=== PATIENT | female | born 1930 | race Caucasian/White ===

== ENCOUNTER 2016-10-30 16:19 | Inpatient (IN) ==
--- NOTE | 2016-10-30 19:41 | Diag Imaging Result Doc PS360 ---
CHEST-2 VIEWS - 10/30/2016 INDICATION: SOB TECHNIQUE: COMPARISON: 12/11/2012 FINDINGS: Stable hyperexpanded lungs compatible with COPD. There is stable linear atelectasis or scarring in the lingula. No focal infiltrates, pneumothorax, or pleural effusion. Heart size remains borderline enlarged. Pulmonary vascularity is normal. IMPRESSION: COPD with pulmonary scarring. No change from prior. Electronically signed by Luke Loaiza 10/30/2016 7:38 PM
[2016-10-30 19:54] LABS: MANUAL DIFF NEEDED? NO
[2016-10-30 19:57] LABS: BASO% 0.2 % (0.0-0.8); EOS# 0.08 X1000 (0.0-0.7); EOS% 0.6 % (0.0-10.0); HEMATOCRIT 33.7 % (37.0-47.0); HEMOGLOBIN 11.1 g/dL (12.0-16.0); IMM GRAN# 0.04 X1000 (0.0-0.04); IMM GRAN% 0.3 % (0.0-0.5); LYMPH# 3.74 X1000 (1.2-3.4); LYMPH% 27.1 % (20.5-51.1); MCH 29.1 PG (27-31); MCHC 32.9 g/dL (33-37); MCV 88.5 FL (81-99); MONO# 1.58 X1000 (0.11-0.59); MONO% 11.4 % (1.7-9.3); MPV 9.7 FL (7.4-10.4); NEUT% 60.4 % (42.2-75.2); PLT 249 X1000 (130-400); RBC 3.81 XMIL (4.2-5.4)
[2016-10-30 20:14] LABS: ALBUMIN 3.9 g/dL (3.5-5.0); CALCIUM 9.5 mg/dL (8.8-10.2); TOTAL BILIRUBIN 0.73 mg/dL (0.20-1.00); TOTAL PROTEIN 8.1 g/dL (6.3-8.3)
[2016-10-30 20:20] LABS: HEMOGLOBIN A1C 6.1 % (4.8-6.0)
[2016-10-30 20:36] LABS: INR 2.18; PROTIME 24.1 Seconds (9.2-11.7)
[2016-10-30] MEDS: BETAPACE PO SCH (20:48)
[2016-10-30] MEDS: LEVAQUIN 500 MG/D5W 500 MG/100 ML IVPB IV SCH (20:48)
[2016-10-30] MEDS: NEURONTIN PO SCH (20:49)
[2016-10-30] MEDS: NS 1,000 ML IV SCH (20:56)
--- NOTE | 2016-10-30 22:00 | HISTORY AND PHYSICAL ---
CHIEF COMPLAINT: Low back pain, fever 101 since Friday. HISTORY OF PRESENT ILLNESS: She is an 85-year-old pleasant white female, who was evaluated in my office with a 3-day history of lower back pain with fever of 101. Urinalysis positive for infection. She has a pain on both sides. X-rays reviewed with large staghorn calculus on the right side noted. Patient is admitted to the hospital with impending pyelonephritis and further evaluation. PAST MEDICAL HISTORY: Kidney stones, type 2 diabetes, SCHMITT, gout, hyperlipidemia, proximal supraventricular tachycardia, diabetic neuropathy, vitamin B12 deficiency, vitamin D deficiency. 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 MEDICATIONS: Amlodipine 5 mg daily, aspirin 80 mg daily, gabapentin 300 p.o. b.i.d., Lantus 30 units twice daily, metformin 500 mg 2 tablets p.o. b.i.d., Coumadin 1.25 daily, sotalol 80 mg p.o. b.i.d., Ultracet 1 tablet t.i.d., vitamin D 67773 once a week, warfarin 5 mg daily. ALLERGIES: Codeine, Keflex and tramadol. 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 No smoking. No alcohol. FAMILY HISTORY: Father of lung cancer at 80. Mom at 67 with heart attack. Brother had pancreatic and colon cancer. HEALTH MAINTENANCE: Flu vaccine 2015, pneumococcal vaccine 2008, shingles vaccine 2013, tetanus 2005, mammography 2013, DEXA scan 2013, colonoscopy Dr. Fisher. REVIEW OF SYSTEMS: HEENT: No headache. No vision problem. No earache. No sore throat. Neck: No goiter. No lymphadenopathy. No bruit. Cardiopulmonary: No chest pain, shortness of breath, PND, orthopnea. GI: Lower back pain. No nausea, vomiting, altered bowel habits. No bleeding per rectum. : No history of hesitancy, frequency. No swelling of feet. Right great toe was amputated. No neurological deficits or weakness, dizziness, vertigo or seizures. PHYSICAL EXAMINATION: VITAL SIGNS: Stable. 5 feet 6 inches, 149 pounds. Temp was 101 degrees in my office. HEENT: Atraumatic, normocephalic. Pupils equal, react to light. TMs are normal. Nose and throat within normal limits. NECK: Supple. No lymphadenopathy. No goiter. CHEST: Bilateral air entry. HEART: Sounds are regular. ABDOMEN: Belly is soft, nontender. Good bowel sounds. Slightly tender in both flank areas. EXTREMITIES: No peripheral edema or cyanosis. No obvious neurological deficits. INVESTIGATIONS: CBC: White cell count 13, hematocrit 33, platelets 249,000. PT / INR 2.1. SMA 7: Sodium 138, potassium 4.0, chloride 99, BUN 25, creatinine 1.2 glucose 67. A1c 6.1. Chest x-ray: COPD stable. CTA renal stone search is pending. ASSESSMENT: An 85-year-old female admitted to the hospital basically with impending pyelonephritis, elevated white cell count, fever of 101, associated with urinary tract infection with a kidney stone on the right side. PLAN: 1. IV fluids. 2. IV antibiotics. 3. CT renal stone search. 4. Paroxysmal atrial fibrillation. On sotalol and Coumadin. 5. Urology consult based on the CT renal stone search, and will slowly reconcile home medications. 6. Tylenol for pain and fever. 7. Will follow up on the pending labs. cc: Finn Willson MD MTDD
--- NOTE | 2016-10-30 22:10 | Diag Imaging Result Doc PS360 ---
CT RENAL STONE SEARCH - 10/30/2016 INDICATION: kidney stone TECHNIQUE: A CT dose reduction protocol was used. COMPARISON: 12/09/2012 FINDINGS: There is a stable large nonobstructing stone in the right renal pelvis. This measures about 2.2 cm. There are some other stable tiny 1-2 mm stones bilaterally. No hydronephrosis. There are cholecystectomy changes. There are a couple of drops of gas in the biliary collecting system of the liver consistent with pneumobilia. Presumably this is benign. There is a grossly stable left adnexal cyst measuring about 3.2 cm. The liver has a slightly nodular contour. There may be cirrhosis. There is moderate constipation throughout the colon diffusely. No bowel obstruction or inflammation. Urinary bladder is normal. There are moderate degenerative changes of the spine. No acute or suspicious bony lesion. IMPRESSION: 1. Stable large nonobstructing stone in the right renal pelvis. Tiny bilateral renal stones. No hydronephrosis. 2. Diffuse constipation. 3. Nodular liver. There may be cirrhosis. 4. Stable cystic structure of the left ovary. Electronically signed by Luke Loaiza 10/30/2016 10:07 PM
[2016-10-30] MEDS: HUMULIN R SUBQ SCH (22:13)
[2016-10-31] MEDS: NUBAIN IV PRN ×2 (00:11→10:31)
[2016-10-31] MEDS: HUMULIN R SUBQ SCH ×4 (06:02→20:56)
[2016-10-31 06:28] LABS: MANUAL DIFF NEEDED? NO
[2016-10-31 06:42] LABS: BASO% 0.2 % (0.0-0.8); EOS% 0.8 % (0.0-10.0); HEMOGLOBIN 9.6 g/dL (12.0-16.0); IMM GRAN# 0.05 X1000 (0.0-0.04); IMM GRAN% 0.4 % (0.0-0.5); LYMPH# 3.46 X1000 (1.2-3.4); LYMPH% 27.8 % (20.5-51.1); MCH 28.7 PG (27-31); MCV 89.8 FL (81-99); MPV 10.5 FL (7.4-10.4); NEUT% 58.8 % (42.2-75.2); PLT 210 X1000 (130-400); RBC 3.34 XMIL (4.2-5.4)
[2016-10-31 07:26] LABS: CALCIUM 8.4 mg/dL (8.8-10.2); POTASSIUM 4.1 mmol/L (3.5-5.1)
[2016-10-31 07:32] LABS: INR 2.35; PROTIME 26.1 Seconds (9.2-11.7)
[2016-10-31] MEDS: BETAPACE PO SCH ×2 (09:12→20:55)
[2016-10-31] MEDS: NEURONTIN PO SCH ×2 (09:12→20:55)
--- NOTE | 2016-10-31 10:50 | Diag Imaging Result Doc PS360 ---
EXAM: SHOULDER-RIGHT HISTORY: pain TECHNIQUE: Right shoulder two views COMMENT: There is some apparent calcification around the acromioclavicular joint. There is no evidence of fracture or dislocation. Some subchondral cyst formation is seen in the distal clavicle. There is no definite internal rotation view. 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 Electronically signed by Jay Michael 10/31/2016 10:48 AM
[2016-10-31] MEDS: NS 1,000 ML IV SCH ×2 (11:41→20:54)
[2016-10-31] MEDS ORDERED: ZOFRAN IV PRN (12:13)
[2016-10-31 14:26] LABS: URINE SOURCE CLEAN CATCH
[2016-10-31 14:30] LABS: BILIRUBIN URINE NEGATIVE (NEGATIVE); BLOOD URINE MODERATE (NEGATIVE); COLOR YELLOW; GLUCOSE URINE NEGATIVE (NEGATIVE); LEUKOCYTES URINE MODERATE (NEGATIVE); NITRITE URINE NEGATIVE (NEGATIVE); PROTEIN URINE 50 mg/dL (NEGATIVE); SP GRAVITY URINE 1.017; TURBIDITY URINE HAZY (CLEAR); URINE MICRO REVIEW NEEDED? YES; UROBILINOGEN URINE NORMAL (NORMAL)
[2016-10-31 14:31] LABS: UR EPITHELIAL CELLS <10 /HPF (<10); URINE BACTERIA NEGATIVE /HPF; URINE CULTURE NEEDED? YES
[2016-10-31 14:47] LABS: URINE CASTS GRANULAR PRESENT; URINE SMALL ROUND CELLS RENAL PRESENT
[2016-10-31] MEDS ORDERED: BLISTEX MEDICATED BERRY LIP BALM TOP PRN (16:08)
[2016-10-31] MEDS ORDERED: INSULIN PEN NEEDLES ONE (17:26)
[2016-10-31] MEDS: LEVAQUIN 500 MG/D5W 500 MG/100 ML IVPB IV SCH (20:54)
[2016-10-31] MEDS: LANTUS SUBQ SCH (20:55)
[2016-10-31] MEDS ORDERED: MEDROL DOSEPAK PO SCH (21:30)
[2016-11-01] MEDS: MEDROL PO SCH ×6 (00:01→20:32)
--- NOTE | 2016-11-01 05:51 | CONSULTATION ---
DATE OF CONSULTATION: 10/31/2016 ATTENDING AND REFERRING PHYSICIAN: Zulma Willson MD. HISTORY OF PRESENT ILLNESS: This 85-year-old female was admitted with right flank pain and fever for several days. The patient's CT scan revealed a 2.2 cm right renal pelvic stone. The stone did not appear to be causing hydronephrosis at the time of the study. She had a CT scan back in 2012, that also revealed a 2 cm right renal pelvic stone. She did not have anything done about that. The scan also revealed very small stones in the left and the right kidney , largest 1 mm. The patient denies any previous urologic surgery. She states she has an occasional urinary tract infection. She is receiving Levaquin 500 mg IV, and a urine culture is pending. She denies any hematuria. PAST MEDICAL HISTORY: Diabetes, gout, elevated cholesterol, coronary artery disease, history of atrial fibrillation, peripheral neuropathy, peripheral arterial disease, lower extremity venous problems. CURRENT MEDICATIONS: Documented on the chart and include Coumadin. PAST SURGICAL HISTORY: Right great toe amputation, cholecystectomy, appendectomy, hysterectomy, breast biopsy, and teeth extraction. SOCIAL HISTORY: No tobacco or alcohol use. ALLERGIES: She is allergic to codeine, Keflex, and tramadol. REVIEW OF SYSTEMS: She states that she just feels somewhat better. She denies any chest pains, recent pulmonary or bowel problems. She states she is trying to keep her blood sugar under control. PHYSICAL EXAMINATION: General: A normally developed, well-nourished, age apparent, white female, oriented in all ways and cooperative. HEENT: Normal for age. Lungs: Clear. Cardiovascular: Irregular rate and rhythm. Abdomen: Obese, soft, mild tenderness in the right side, but no guarding or rebound. Normal bowel sounds. No hepatosplenomegaly or masses. Back: Right CVA tenderness. Left side is normal. Genitourinary: Deferred until surgery. Extremities: No clubbing, cyanosis, or edema. Neuro: No focal deficits. LABORATORY EVALUATION: Has a white count of 12.46, a hemoglobin 9.6, hematocrit 30, platelets are 210,000. Serum electrolytes are normal. BUN 25, creatinine 1.2. CT stone search is as noted in the HPI. IMPRESSION: 1. Right flank pain and fever, probable right pyelonephritis. 2. A 2.2 cm right renal pelvic stone. RECOMMEND: 1. Continuing IV antibiotics until urine culture results are available. If that is negative, would continue Lovenox. 2. Place right double-J stent to decompress the right kidney. The planned procedure, benefits versus risks, and possible complications, including, but not limited to bleeding, infection, need for further surgery was discussed. She seemed to understand and desired to proceed. 3. Discussed the large stone in the right renal pelvis. After her infection and pain resolves, she will need either right shockwave lithotripsy versus laparoscopic pyelolithotomy. This was discussed with her, and she is going to think about that. Thank you for this consultation. cc: MD Finn Michaels MD MTDD
--- NOTE | 2016-11-01 05:55 | PROGRESS NOTE ---
DATE: 10/31/2016 SUBJECTIVE: The patient is now complaining of right shoulder pain, and abdominal pain is much improved. REVIEW OF SYSTEMS: None reported. OBJECTIVE: Vital signs: Afebrile. Hemodynamics were stable. HEENT: Within normal limits. Neck: Supple. Chest: Clear. Heart: Sounds are regular. Extremities: Right shoulder is inflamed with bursitis anteriorly. Noted positive impingement sign. Abdomen : Belly is soft, nontender. Good bowel sounds. DRESSMAKER OR TAILOR: No obvious neurological deficits. INVESTIGATIONS: CBC: White cell count 12, hematocrit 30, platelets 210,000. PT 26, INR 2.3. SMA-7 is normal except creatinine 1.2, glucose 114. Urinalysis - moderate infection. Cultures are pending. ASSESSMENT AND PLAN: 1. Right shoulder pain, which is new onset suspicious for bursitis. X-rays is negative. Treatment with a Medrol Dosepak. 2. Urinary tract infection with pyelonephritis with the right-sided kidney stone. Dr. Chavez consult. 3. I discussed with the family members in [place] and about her mother's progress, and the level of documentation is 25 minutes. 4. Diabetes on Lantus. Since the patient is going to be NPO after midnight, we will hold the evening dose of Lantus as well as the morning. cc: Finn Willson MD [facility]odrick
[2016-11-01] MEDS: HUMULIN R SUBQ SCH ×4 (06:05→22:55)
[2016-11-01] MEDS: NEURONTIN PO SCH ×2 (08:36→20:31)
[2016-11-01] MEDS: BETAPACE PO SCH ×2 (08:36→20:31)
[2016-11-01] MEDS: LOTREL 5/10 MG PO SCH (08:36)
[2016-11-01] MEDS: NUBAIN IV PRN (08:37)
[2016-11-01] MEDS: NS 1,000 ML IV SCH ×2 (08:37→12:52)
[2016-11-01] MEDS ORDERED: FENTANYL ONE (14:41)
[2016-11-01] MEDS ORDERED: DIPRIVAN 1% ONE (14:41)
[2016-11-01] MEDS ORDERED: XYLOCAINE-MPF 2% ONE (14:41)
[2016-11-01] MEDS ORDERED: NEOSPORIN G.U. IRRIGANT ONE (14:52)
[2016-11-01] MEDS ORDERED: ROBINUL ONE (15:06)
[2016-11-01] MEDS ORDERED: TORADOL ONE (15:12)
[2016-11-01] MEDS ORDERED: DECADRON ONE (15:12)
[2016-11-01] MEDS ORDERED: DITROPAN PO PRN (16:26)
--- NOTE | 2016-11-01 18:59 | PROGRESS NOTE ---
DATE: 11/01/2016 SUBJECTIVE: Patient complains of itchy nose, rash, and right shoulder pain. No back pain, no fever. Seen by Dr. Chavez, and the rest of the review of systems are normal. OBJECTIVE: Temperature is 97 degrees, pulse is 68, blood pressure is 136/47, 2 L nasal cannula 92%. I's and O's are positive 400 mL. HEENT: Itchy rash on the tip of the nose. Shoulders: Right shoulder is inflamed, not able to move. Chest: Clear. Heart: Sounds are regular. Abdomen: Belly is soft, nontender. Good bowel sounds. Neurologic: No neurological deficits. INVESTIGATIONS: None reported, and urine cultures are no growth. ASSESSMENT AND PLAN: 1. Fever 101, elevated white cell count. Positive urine infection by dipstick with staghorn type of calculus in the right kidney. Dr. Chavez was consulted. He is going to do cystoscopy with retrograde pyelogram and double-J stent and continue IV fluids and IV antibiotics. 2. Right shoulder pain. It looked like a bursitis. On Medrol Dosepak. 3. Type 2 diabetes on Lantus. We will hold the Lantus insulin, n.p.o. We will restart again tonight. 4. Paroxysmal supraventricular tachycardia/PAF on sotalol, and will hold the Coumadin. We will restart after the procedure. 5. Hypertension. On Lotrel. LEVEL OF DOCUMENTATION: 25 minutes. cc: Finn Willson MD
[2016-11-01] MEDS: LEVAQUIN 500 MG/D5W 500 MG/100 ML IVPB IV SCH (20:29)
[2016-11-01] MEDS: LANTUS SUBQ SCH (22:55)
[2016-11-02] MEDS: NS 1,000 ML IV SCH ×2 (03:15→16:55)
[2016-11-02] MEDS: HUMULIN R SUBQ SCH ×4 (06:24→22:12)
--- NOTE | 2016-11-02 08:17 | OPERATIVE NOTE ---
PROCEDURE DATE: 11/01/2016 SURGEON: Dr. Roebrt Chavez. PROCEDURE PERFORMED: Cystoscopic examination, right retrograde ureteral pyelogram, placement of a right double-J stent. ANESTHESIA: General via laryngeal mask. FINDINGS: Cystoscopic exam: Urethra-greater than 21-Kuwaiti without stricture. Bladder-normal ureteral orifices bilaterally. No papillary lesions. Grade 1 trabeculations. Small diverticulum on the right lower posterolateral wall that was easily scoped. exam: Normal external female. Atrophic mucosa. No adnexal masses. Palpably normal bladder. Right retrograde ureteral pyelogram: The large stone was visualized and when contrast was placed, it created a large filling defect in the renal pelvis. No other filling defects were noted. There was no hydronephrosis. INDICATIONS FOR PROCEDURE: This 85-year-old female has a long history of an enlarging right renal pelvic stone. It is currently approximately 2.5 cm in diameter. She was admitted with right pyelonephritis. DESCRIPTION OF PROCEDURE: After informed consent was obtained from the patient and her receiving IV antibiotics, she was taken the main OR and placed in the supine position. General anesthesia via laryngeal mask was achieved. She was then placed in the low lithotomy position, and prepped and draped in the usual sterile fashion for a cystoscopic exam. A 21-Ku[place]i cystoscope was passed through the patient's urethra and into the bladder with findings noted above. An 8-Ku[place]i cone- tipped catheter was passed through the cystoscope, engaged the right ureteral orifice. Contrast was injected with findings as noted above. An 8-[place]i cone-tipped catheter was removed. A 0.035 inch ZIPwire was passed through the cystoscope, engaged the right ureteral orifice, advanced up into the kidney without difficulty. A 6-Ku[place]i, 24 cm double-J stent was passed over the ZIPwire and up into the kidney. The renal end was verified by fluoroscopic exam, bladder end directly visualized. Stent removal, string was removed. Bladder was drained. Cystoscope was removed. exam performed. Estimated blood loss 0. She tolerated the procedure well and was taken to the recovery room in good condition. cc: MD Finn Michaels MD
[2016-11-02] MEDS: LANTUS SUBQ SCH ×2 (09:27→22:12)
[2016-11-02] MEDS: BETAPACE PO SCH ×2 (09:27→22:11)
[2016-11-02] MEDS: MEDROL PO SCH ×4 (09:27→22:12)
[2016-11-02] MEDS: NEURONTIN PO SCH ×2 (09:27→22:11)
[2016-11-02] MEDS: LOTREL 5/10 MG PO SCH (09:27)
--- NOTE | 2016-11-02 11:51 | Diag Imaging Result Doc PS360 ---
EXAM: CHEST-PORTABLE HISTORY: cough TECHNIQUE: Portable upright AP COMPARISON: 10/30/2016 FINDINGS: The lungs are well expanded. Heart is borderline mildly prominent. No consolidation. No pleural effusions identified. The overall appearance is similar to that of the prior exam. IMPRESSION: No pneumonia. If clinical suspicion persists, a PA and lateral follow-up is recommended Electronically signed by Nicolás Zaragoza 11/02/2016 11:48 AM
--- NOTE | 2016-11-02 15:41 | PROGRESS NOTE ---
DATE: 11/02/2016 SUBJECTIVELY: Ms. Dinero is doing fair. Complaining of chest congestion, cough with scanty sputum production. She did have some runny nose, stuffy nose. No high-grade fever or chills. The patient underwent cystoscopy and right retrograde pyelogram and placement of right double-J stent yesterday. Patient tolerated procedure well. She denied any typical chest pain, palpitation, no nausea, vomiting. Oral intake is fair. No diarrhea, blood, or mucus in the stool. Admission history physical and Urology consult noted. PAST MEDICAL HISTORY: Significant for NIDDM, kidney stone, SCHMITT, gout, hyperlipidemia, paroxysmal supraventricular tachycardia, diabetic neuropathy, vitamin D deficiency, vitamin B12 deficiency. OBJECTIVE: Vital signs: Noted. Blood pressure 113/50, pulse 53, respiration 19, temperature 98.3 degrees. Skin: Senile turgor. HEENT: Head atraumatic, normocephalic. Brook conjunctivae. Anicteric sclerae. Extraocular muscle movement normal. Fundus cannot be penetrated. No pharyngeal congestion. Neck: Supple. No JVD, thyromegaly or lymphadenopathy. Chest: Bilateral good air entry present. No rales. CVS: S1 and S2 heard. Abdomen: Soft. No distention. Bowel sounds present. Extremities: No cyanosis, clubbing. No acute DVT. KINESIOLOGIST: Alert, awake, able to move all 4 limbs. PROBLEMS: Include UTI, staghorn calculus status post cystoscopy and double-J stent placement, diabetes mellitus, hypertension, paroxysmal supraventricular tachycardia patient is on Coumadin, hypertension on Lotrel. Patient labs and medication noted. Will continue current treatment. Close observation. The patient is on Medrol Dosepak, IV antibiotics. I am going to check chest x- ray to make sure no fluid overload or pneumonia. Continue rest of the treatment and close observation. cc: MD Finn Alexandra MD
[2016-11-02] MEDS: LEVAQUIN 500 MG/D5W 500 MG/100 ML IVPB IV SCH (22:10)
[2016-11-03] MEDS: HUMULIN R SUBQ SCH ×4 (06:35→21:22)
[2016-11-03] MEDS: NS 1,000 ML IV SCH ×2 (06:35→17:47)
[2016-11-03 06:57] LABS: BASO% 0.1 % (0.0-0.8); HEMATOCRIT 28.6 % (37.0-47.0); HEMOGLOBIN 9.2 g/dL (12.0-16.0); IMM GRAN# 0.09 X1000 (0.0-0.04); IMM GRAN% 0.7 % (0.0-0.5); LYMPH# 1.17 X1000 (1.2-3.4); LYMPH% 8.9 % (20.5-51.1); MANUAL DIFF NEEDED? YES; MCH 28.7 PG (27-31); MCHC 32.2 g/dL (33-37); MCV 89.1 FL (81-99); MONO# 0.63 X1000 (0.11-0.59); MONO% 4.8 % (1.7-9.3); MPV 11.1 FL (7.4-10.4); NEUT% 85.5 % (42.2-75.2); PLT 273 X1000 (130-400); RBC 3.21 XMIL (4.2-5.4)
[2016-11-03 07:29] LABS: ALBUMIN 2.8 g/dL (3.5-5.0); CALCIUM 8.7 mg/dL (8.8-10.2); MAGNESIUM 1.8 mg/dL (1.5-2.7); POTASSIUM 4.9 mmol/L (3.5-5.1); TOTAL BILIRUBIN 0.3 mg/dL (0.20-1.00); TOTAL PROTEIN 6.7 g/dL (6.3-8.3)
[2016-11-03 07:31] LABS: BANDS 4 % (0-1); LYMPHS 4 % (21-51); MONO 4 % (1-9)
[2016-11-03] MEDS: BETAPACE PO SCH ×2 (10:10→21:18)
[2016-11-03] MEDS: MEDROL PO SCH ×4 (10:10→21:17)
[2016-11-03] MEDS: LOTREL 5/10 MG PO SCH (10:10)
[2016-11-03] MEDS: NEURONTIN PO SCH ×2 (10:11→21:17)
[2016-11-03] MEDS: LANTUS SUBQ SCH ×2 (10:12→21:16)
[2016-11-03] MEDS: DIFLUCAN 200 MG/NS 200 MG/100 ML IVPB IV SCH (11:12)
--- NOTE | 2016-11-03 16:10 | PROGRESS NOTE ---
DATE: 11/03/2016 SUBJECTIVE: Ms. Dinero is doing better. Patient does have mild cough. No expectoration. No high-grade fever or chills. I did a chest x-ray yesterday, it did not show any pneumonia. The patient had cystoscopy and stent placement. Her urine culture grew yeast. I am going to stop Levaquin because of drug interaction with Diflucan, start her on Diflucan 200 mg IV and we should be able to change it to 100 mg IV or p.o. soon. No nausea or vomiting. PHYSICAL EXAMINATION: Vital signs: Noted. Neck: Supple. No JVD. Lungs: Bibasilar crepitation. Heart: S1 and S2 heard. Abdomen: Soft, nontender. Bowel sounds present. CARRIER ASSOCIATE: Alert, awake, able to move all 4 limbs. LABORATORY DATA: Lab data did reveal mild leukocytosis, could be due to steroid. Electrolytes: BUN 38, creatinine 1.3. The rest of lab data noted. ASSESSMENT: Overall patient is doing better. PLAN: Overall plan discussed with patient's son who was present. The patient is eager to go home. We will watch patient today. If clinical condition permits, we will plan discharging her home tomorrow. cc: MD Finn Alexandra MD
[2016-11-03] MEDS ORDERED: LASIX IV ONE (18:52)
[2016-11-03] MEDS: ALBUTEROL NEB INH SCH ×2 (19:00→22:55)
[2016-11-03] MEDS ORDERED: INSULIN PEN NEEDLES ONE (21:18)
[2016-11-04] MEDS: ALBUTEROL NEB INH SCH ×4 (03:40→21:35)
[2016-11-04] MEDS: HUMULIN R SUBQ SCH ×4 (06:20→22:42)
[2016-11-04] MEDS: NS 1,000 ML IV SCH (06:29)
--- NOTE | 2016-11-04 07:57 | Diag Imaging Result Doc PS360 ---
RETROGRADES 2 OR 3 FILMS - 11/01/2016 INDICATION: RIGHT RENAL STONE, STENT PLACEMENT TECHNIQUE: Right sided ureterogram. The exam was performed by the patient's urologist. 14 images were submitted. COMPARISON: CT from 10/30/2016 FINDINGS: On the engineering coordinator exam, there is a large stone in the right renal pelvis. This was not causing much obstruction. Contrast was successfully refluxed around the stone into the urinary collecting system. The renal collecting system appeared nondistended. A right nephroureteral stent was placed in an upper pole calyx. This is in good position. IMPRESSION: 1. Stable, large right renal pelvis stone without obstruction. 2. Successful nephroureteral stent placement. Electronically signed by Luke Loaiza 11/04/2016 7:55 AM
[2016-11-04] MEDS ORDERED: LASIX IV ONE (08:59)
[2016-11-04] MEDS: LOTREL 5/10 MG PO SCH (09:01)
[2016-11-04] MEDS: BETAPACE PO SCH ×2 (09:01→22:41)
[2016-11-04] MEDS: NEURONTIN PO SCH ×2 (09:02→22:41)
[2016-11-04] MEDS: MEDROL PO SCH ×3 (09:02→22:41)
[2016-11-04] MEDS: DIFLUCAN 200 MG/NS 200 MG/100 ML IVPB IV SCH (11:02)
[2016-11-04] MEDS: LANTUS SUBQ SCH ×2 (11:03→22:42)
--- NOTE | 2016-11-04 19:30 | PROGRESS NOTE ---
DATE: 11/04/2016 SUBJECTIVE: Interval history was reviewed. The patient's son was at the bedside. The patient has a retrograde pyelogram with double-J stent. Rash over the nose is improving, as well as the right shoulder pain. Complains of shortness of breath. I/O's are positive 1715, and 2 L nasal cannula 95%. OBJECTIVE: HEENT: Examination within normal limits. Chest: Bilateral air entry. Heart: Sounds are regular. Abdomen: Belly is soft, nontender. Good bowel sounds. No neurological deficits. INVESTIGATIONS: White cell count 13.2, hematocrit 28, platelet 273,000. SMA 7 is normal. BUN 38, creatinine 1.3. Urine culture yeast. ASSESSMENT AND PLAN: 1. Right kidney stones. Double-J stent. Continue on IV antibiotics. Urine cultures are negative except yeast. Discontinued antibiotics and now he is getting IV Diflucan. 2. Shortness of breath. Discontinue IV fluids. 3. Right shoulder pain. Improving on Medrol Dosepak. 4. Kidney stone on the right side. Discussed the option by Dr. Chavez with lithotripsy while she is off on Coumadin or laparoscopic removal of kidney stone. The patient has been opted to go for surgery. Dr. Chavez is going to do as an outpatient. 5. Diabetes. Continue on insulin. We will check the labs in the morning. 6. Shortness of breath. Discontinue IV fluids. Lasix 1 dose and check the chest x-ray in the morning. LEVEL OF DOCUMENTATION: Twenty minutes. cc: Finn Willson MD
[2016-11-05] MEDS: ALBUTEROL NEB INH SCH ×2 (03:35→09:44)
[2016-11-05 04:52] LABS: ALLEN TEST YES; BE 5.3 mmoll (-3.0-3.0); BLOOD TYPE ARTERIAL; DRAW SITE R RADIAL; METHB 0.5 % (0.0-1.5); MODALITY CANNULA; O2(CT) 12.9 mL/dL (15.0-23.0); PCO2(98.6) 43 mmHg (35-45); PO2(98.6) 66 mmHg (60-100); SAMPLE BLOOD; SAO2 94.8 % (95.0-100.0); THB 9.7 g/dL (11.5-17.4); pH(98.6) 7.45 (7.35-7.45)
[2016-11-05 05:01] VITALS: BP 141/68
[2016-11-05] MEDS: HUMULIN R SUBQ SCH (06:17)
[2016-11-05 06:25] LABS: MANUAL DIFF NEEDED? NO
[2016-11-05 06:35] LABS: EOS# 0.02 X1000 (0.0-0.7); EOS% 0.2 % (0.0-10.0); HEMATOCRIT 31.7 % (37.0-47.0); HEMOGLOBIN 10.4 g/dL (12.0-16.0); IMM GRAN% 0.9 % (0.0-0.5); LYMPH# 2.26 X1000 (1.2-3.4); LYMPH% 21.1 % (20.5-51.1); MCH 28.9 PG (27-31); MCHC 32.8 g/dL (33-37); MCV 88.1 FL (81-99); MONO# 0.95 X1000 (0.11-0.59); MONO% 8.9 % (1.7-9.3); MPV 10.7 FL (7.4-10.4); NEUT% 68.9 % (42.2-75.2); PLT 301 X1000 (130-400)
[2016-11-05 07:01] LABS: ALBUMIN 3.3 g/dL (3.5-5.0); CALCIUM 8.8 mg/dL (8.8-10.2); POTASSIUM 3.9 mmol/L (3.5-5.1); TOTAL BILIRUBIN 0.36 mg/dL (0.20-1.00); TOTAL PROTEIN 6.9 g/dL (6.3-8.3)
--- NOTE | 2016-11-05 07:41 | Diag Imaging Result Doc PS360 ---
EXAM: CHEST-PORTABLE - 11/05/2016 HISTORY: dyspnea TECHNIQUE: Portable chest 0600 COMPARISON: 11/02/2016 FINDINGS: There is stable borderline cardiomegaly. There is slight prominence of central vascular markings. There is subsegmental atelectasis and/or small pleural effusion at the lateral left base. There is no consolidation or pneumothorax identified. IMPRESSION: Stable borderline cardiomegaly. Slight prominence of central vascular markings. Mild atelectasis and/or small pleural effusion at lateral left base. Electronically signed by Hua Robledo 11/05/2016 7:39 AM
[2016-11-05] MEDS: BETAPACE PO SCH (09:12)
[2016-11-05] MEDS: NEURONTIN PO SCH (09:12)
[2016-11-05] MEDS: MEDROL PO SCH (09:12)
[2016-11-05] MEDS: LOTREL 5/10 MG PO SCH (09:13)
[2016-11-05] MEDS: LANTUS SUBQ SCH (09:13)
[2016-11-05] MEDS: DIFLUCAN 200 MG/NS 200 MG/100 ML IVPB IV SCH (09:14)
--- NOTE | 2016-11-05 19:44 | DISCHARGE SUMMARY ---
ADMISSION DATE: 10/30/2016 DISCHARGE DATE: 11/05/2016 DISCHARGE DIAGNOSIS: Chronic back pain due to right-sided pyelonephritis with 2.4 cm staghorn calculus. SECONDARY DIAGNOSES: 1. Right shoulder pain due to acromial bursitis. 2. Type 2 diabetes. 3. Nonalcoholic steatohepatitis . 4. Gout. 5. Hyperlipidemia. 6. Paroxysmal supraventricular tachycardia. 7. Diabetic neuropathy. 8. Vitamin B12 deficiency, vitamin D deficiency. OTHER PROBLEMS: Status post right great toe amputation. CONSULTATION: Robert Chavez MD. PROCEDURES: Cystoscopy, retrograde pyelogram. BRIEF HISTORY: Please see the H and P that was done on 10/30/2016. In brief, she is an 85-year- old, pleasant white female who was admitted to the hospital with a fever of 101 , pain on the right side localized. She has a 2.2 cm kidney stone on the right side. HOSPITAL COURSE: She was given IV fluids and IV antibiotics. Urology consultation was obtained. Coumadin was stopped. The patient had a cystoscopy retrograde pyelogram with double-J stent placed. The patient was given the option of lithotripsy versus laparoscopy excision kidney stone. The patient decided to do the stone extraction rather than lithotripsy. In the meantime patient developed some right shoulder pain and x-rays were negative. She was treated with Medrol Dosepak and she got better. Dr. Chavez is going to do outpatient stone extraction laparoscopically. At the time of discharge patient was stable. LABS: CBC: White cell count 10, hematocrit 32, platelets 301,000. ABG: pH is 7.45, pCO2 43, PO2 66, SMA 7. Sodium 142, potassium 3.9, chloride 103, BUN 33, creatinine 1.1, glucose 68. LFTs were normal. Urine culture positive for yeast infection and she was given IV Diflucan. DISCHARGE INSTRUCTIONS: 1. Sotalol 80 p.o. b.i.d. 2. Warfarin 5 mg daily. 3. Lantus 50 subcutaneous b.i.d. 4. Metformin 1000 p.o. b.i.d. 5. Lotrel 5/10 daily. 6. Neurontin 300 p.o. b.i.d. 7. Diflucan 100 daily for 5 days. 8. Follow up in my office next week. We will make arrangements with Dr. Chavez to remove the stone. Also continue to monitor right shoulder pain as well. cc: MD Robert Roche MD MTDD
== END 2016-11-05 10:26 | disposition home or self-care (01) ==
LOC: DIRADM 16:19 → 3N 18:16
PROVIDERS: ADMIT Internal Medicine; ATTEND Internal Medicine